=== PATIENT | male | born 1955 | race Caucasian/White ===

== ENCOUNTER 2016-09-27 00:01 | Observation (INO) | payer OTHER ==
[~2016-09-27] VITALS: Ht 177.8 cm; Wt 102.3 kg
[2016-09-27] VITALS (9 sets, daily range): BP systolic 127–177; BP diastolic 67–80; PULSE 60–76; TEMP 36.5–36.6; O2SAT 91–95; Ht 177.8 cm; Wt 102.3 kg
[2016-09-27] MEDS ORDERED: ALBUT/IPRATROP 3MG/0.5MG NEB 3 ML VIAL INH STA (00:15)
[2016-09-27] MEDS ORDERED: METHYLPREDNISOLONE 125 MG VIAL IV STA (00:15)
[2016-09-27 00:29] LABS: BASO % 0.5 %; BASO ABS # 0.04 K/uL (0-0.2); COMPLETE YES; EOS % 5.2 %; HEMATOCRIT 41.7 % (42-52); IG% 0.3 %; LYMPH % 36.6 %; LYMPH ABS # 2.68 K/uL (1.2-3.4); MEAN CELL VOLUME 84.2 fL (80-100); MEAN CORPUSCULAR HEMOGLOBIN 28.7 pg (25-34); MEAN CORPUSCULAR HGB CONC 34.1 g/dl (32-36); MEAN PLATELET VOLUME 9.5 fL (7.4-10.4); MONO % 12.7 %; NEUT % 44.7 %; PLATELET COUNT 269 K/uL (130-400); RED BLOOD COUNT 4.95 M/uL (4.7-6.1); WHITE BLOOD COUNT 7.33 K/uL (4.8-10.8)
[2016-09-27] MEDS ORDERED: MELO7.5T5 PO (00:31)
[2016-09-27] MEDS ORDERED: SIMV40TA2 PO (00:32)
[2016-09-27] MEDS ORDERED: KETO2SHA TOP (00:33)
[2016-09-27] MEDS ORDERED: ALBU18002 INH (00:34)
[2016-09-27 01:03] LABS: ALT/SGPT 40 U/L (12-78); AST/SGOT 21 U/L (15-37); BLOOD UREA NITROGEN 21 mg/dl (7-18); BUN/CREATININE RATIO 19.5 (10-20); CALCIUM 8.8 mg/dl (8.5-10.1); CARBON DIOXIDE 27 mmol/L (21-32); CHLORIDE 109 mmol/L (98-107); GLUCOSE 95 mg/dl (70-99); MAGNESIUM 2.3 mg/dl (1.8-2.4); POTASSIUM 3.8 mmol/L (3.5-5.1); SODIUM 146 mmol/L (136-145)
[2016-09-27 01:12] LABS: ALKALINE PHOSPHATASE 73 U/L (45-117); CKMB/CK RATIO 0.8 (0-3.0)
--- NOTE | 2016-09-27 02:06 | EMERGENCY ROOM VISIT NOTE ---
History First contact with patient: 00:04 Chief Complaint: CHEST PAIN Stated Complaint: CHEST PAIN,PAIN DOWN LFT ARM Nursing Triage Summary: pt states he had onset of chest pain this evening after eating lunch on break at work. denies anything making pain worse or better. denies cardiac history. family hx of heart attacks. pt reports he smoked "a long time ago." recently sick with cough/cold. denies dizziness/nausea. states he has no pain at this time but does feel sob. pt alert and oriented x4 History of Present Illness The patient is a 61 year old male who presents to the Emergency Room with complaints of midsternal chest pain that radiates down his left arm described as aching, ranging in severity was 4-10 that is pretty much resolved. Patient also felt shaky and sweaty once it was occurred. He just got done eating a sandwich and chips. Nothing makes the pain better or worse. No prior heart disease that he knows of. He does have a family history of heart disease in his father. He used to smoke. He does not smoke anymore. He denies blood pressure or diabetes. No recent travel. No leg pain or swelling. Patient denies abdominal pain, vomiting, diarrhea, leg pain or swelling, back pain, jaw pain, neck pain. No recent stress test or echocardiogram. Patient states he's been having a cough for the past 2 weeks. Review of Systems See HPI for pertinent positives & negatives. A total of 10 systems reviewed and were otherwise negative. Past Medical/Surgical History Medical Problems: (1) Chest pain Hyperlipidemia, appendectomy Social History Smoking Status: Former Smoker Smokeless Tobacco Use: No Alcohol Use: occasionally Drug Use: none Marital Status: Housing Status: lives with family Occupation Status: employed Current/Historical Medications Scheduled Ketoconazole (Topical) (Ketoconazole), 1 APPLN TOP DIRECTED Simvastatin (Zocor), 40 MG PO QPM Scheduled PRN Albuterol Sulfate (Proair Respiclick), 2 PUFFS INH Q4 PRN for SOB/Wheezing Meloxicam (Mobic), 15 MG PO DIRECTED PRN for Pain Allergies Coded Allergies: No Known Allergies (Unverified , 09/27/16) Physical Exam Vital Signs Date Time Temp Pulse Resp B/P Pulse Ox O2 Delivery O2 Flow Rate FiO2 09/27/16 01:30 59 18 145/81 92 Room Air 09/27/16 01:09 65 18 161/80 92 Room Air 09/27/16 00:30 60 18 141/86 98 Room Air 09/27/16 00:30 95 Room Air 09/27/16 00:30 95 Room Air 09/27/16 00:17 63 09/27/16 00:17 Room Air 09/27/16 00:02 36.6 61 16 220/75 93 Room Air Physical Exam VITALS: Vitals are noted on the nurse's note and reviewed by myself. Vital signs hypertensive GENERAL: Pleasant male, in no acute distress, nondiaphoretic, well-developed well-nourished. SKIN: The skin was without rashes, erythema, edema, or bruising. There is no tenting of the skin. Capillary reflex less than 2 seconds. HEAD: Normocephalic atraumatic. EARS: External auditory canals clear, tympanic membranes pearly phipps without erythema or effusion bilaterally. EYES: Pupils equal round and reactive to light and accommodation. Conjunctivae without injection, sclerae without icterus. Extraocular movements intact. NOSE: Patent, turbinates without inflammation or discharge. MOUTH: Mucous membranes moist. Pharynx without erythema or exudate. Uvula midline. Airway patent. Tongue does not deviate. NECK: Supple without nuchal rigidity. No lymphadenopathy. No thyromegaly. Cervical spine is nontender. No JVD. HEART: Regular rate and rhythm without murmurs gallops or rubs. LUNGS: Mild diffuse end expiratory wheezes, without rales or rhonchi. No dullness to percussion. No retractions or accessory muscle use. ABDOMEN: Positive bowel sounds x 4. Normal tympanic percussion. Soft, nontender, without masses or organomegaly. [place] sign negative. No guarding or rebound tenderness. MUSCULOSKELETAL: No muscle atrophy, erythema, or edema noted. NEURO: Patient was alert and oriented to person place and time. Normal sensation to light and sharp touch. No focal neurological deficits. Medical Decision & Procedures Laboratory Results 09/27/16 00:14 Red Blood Count 4.95, Mean Corpuscular Volume 84.2, Mean Corpuscular Hemoglobin 28.7, Mean Corpuscular Hemoglobin Concent 34.1, Mean Platelet Volume 9.5, Neutrophils (%) (Auto) 44.7, Lymphocytes (%) (Auto) 36.6, Monocytes (%) (Auto) 12.7, Eosinophils (%) (Auto) 5.2, Basophils (%) (Auto) 0.5, Neutrophils # (Auto ) 3.28, Lymphocytes # (Auto) 2.68, Monocytes # (Auto) 0.93, Eosinophils # (Auto ) 0.38, Basophils # (Auto) 0.04 09/27/16 00:14 Test 09/27/16 00:14 09/27/16 00:24 White Blood Count 7.33 K/uL (4.8-10.8) Red Blood Count 4.95 M/uL (4.7-6.1) Hemoglobin 14.2 g/dL (14.0-18.0) Hematocrit 41.7 % (42-52) Mean Corpuscular Volume 84.2 fL (80-100) Mean Corpuscular Hemoglobin 28.7 pg (25-34) Mean Corpuscular Hemoglobin Concent 34.1 g/dl (32-36) Platelet Count 269 K/uL (130-400) Mean Platelet Volume 9.5 fL (7.4-10.4) Neutrophils (%) (Auto) 44.7 % Lymphocytes (%) (Auto) 36.6 % Monocytes (%) (Auto) 12.7 % Eosinophils (%) (Auto) 5.2 % Basophils (%) (Auto) 0.5 % Neutrophils # (Auto) 3.28 K/uL (1.4-6.5) Lymphocytes # (Auto) 2.68 K/uL (1.2-3.4) Monocytes # (Auto) 0.93 K/uL (0.11-0.59) Eosinophils # (Auto) 0.38 K/uL (0-0.5) Basophils # (Auto) 0.04 K/uL (0-0.2) RDW Standard Deviation 42.6 fL (36.4-46.3) RDW Coefficient of Variation 13.9 % (11.5-14.5) Immature Granulocyte % (Auto) 0.3 % Immature Granulocyte # (Auto) 0.02 K/uL (0.00-0.02) Anion Gap 10.0 mmol/L (3-11) Est Creatinine Clear Calc Drug Dose 86.3 ml/min Estimated GFR () 84.1 Estimated GFR (Non- 72.6 BUN/Creatinine Ratio 19.5 (10-20) Calcium Level 8.8 mg/dl (8.5-10.1) Magnesium Level 2.3 mg/dl (1.8-2.4) Total Bilirubin 0.2 mg/dl (0.2-1) Direct Bilirubin < 0.1 mg/dl (0-0.2) Aspartate Amino Transf (AST/SGOT) 21 U/L (15-37) Alanine Aminotransferase (ALT/SGPT) 40 U/L (12-78) Alkaline Phosphatase 73 U/L (45-117) Total Creatine Kinase 273 U/L (39-308) Creatine Kinase MB 2.3 ng/ml (0.5-3.6) Creatine Kinase MB Ratio 0.8 (0-3.0) Troponin I < 0.015 ng/ml (0-0.045) Total Protein 7.5 gm/dl (6.4-8.2) Albumin 3.7 gm/dl (3.4-5.0) Lipase 156 U/L (73-393) Thyroid Stimulating Hormone (TSH) 1.420 uIu/ml (0.300-4.500) Bedside D-Dimer 278 ng/mlFEU (0-450) Medications Administered Medications (Trade) Dose Ordered Sig/Anali Route Start Time Stop Time Status Last Admin Dose Admin Albuterol/ Ipratropium (Duoneb) 3 ml NOW STAT INH 09/27/16 00:15 09/27/16 00:16 DC 09/27/16 00:25 3 ML Methylprednisolone Sodium Succinate (Solu-Medrol IV) 125 mg NOW STAT IV 09/27/16 00:15 09/27/16 00:16 DC 09/27/16 00:25 125 MG ED Course Prior records/ancillary studies reviewed. Triage Nursing notes reviewed. Additional history obtained from family. The patient's history was concerning for chest pain. Differential diagnosis: Etiologies such as cardiac ischemia, aortic dissection, pulmonary embolism, pneumonia, pneumothorax, musculoskeletal, infections, pericarditis, myocarditis , esophageal rupture, gastrointestinal, as well as others were entertained. Physical examination: As above. ER treatment provided: Nebulizer, Solu-Medrol On reassessment the patient felt better. Diagnostic interpretation by me: The electrocardiogram was negative for pathologic change. Normal sinus, normal intervals, no acute ST-T changes, Q waves in lead 3, rate of 56. Impression sinus bradycardia with Q waves in the inferior lead interpreted by myself The labs revealed negative troponin. Negative d-dimer Imaging studies: Chest x-ray with no acute consolidation or pneumothorax or free air per my interpretation Consultation: A consultation was placed with the hospitalist, Dr Foster. The case was discussed and diagnostics were reviewed. The patient was evaluated in the ER for further treatment. Exam and history seem consistent with chest pain that could be cardiac in etiology. Patient will be evaluated by medicine for possible admission. Negative troponin. He has risk factors of diabetes and family history of heart disease. No recent stress test or echocardiogram. By the evaluation outlined above emergent etiologies such as aortic dissection , pulmonary embolism, pneumonia, pneumothorax, pericarditis, myocarditis, gastrointestinal, as well as others were deemed relatively unlikely. The pt informed about the findings as listed above. All questions were answered and pleased with the treatment. case reviewed with my Attending Medical Decision As above Impression Primary Impression: Precordial chest pain Additional Impression: Acute bronchitis Departure Information Dispostion Being Evaluated By Hospitalist Condition FAIR Referrals Farhat Diaz M.D. (PCP) Patient Instructions [facility] Problem Qualifiers Additional Impression: Acute bronchitis Bronchitis organism: unspecified organism Qualified Codes: J20.9 - Acute bronchitis, unspecified
[2016-09-27] MEDS ORDERED: ALBUT/IPRATROP 3MG/0.5MG NEB 3 ML VIAL INH PRN (02:15)
[2016-09-27] MEDS ORDERED: ACETAMINOPHEN 325 MG TAB PO PRN (02:15)
[2016-09-27] MEDS ORDERED: TRAMADOL HCL 50 MG TAB PO PRN (02:15)
[2016-09-27] MEDS ORDERED: ONDANSETRON INJ 2 MG/ML 2 ML VIAL IV PRN (02:15)
[2016-09-27] MEDS ORDERED: MoRPHine SULFATE 4 MG/ML 1 ML CARP\\VIAL IV PRN (02:15)
[2016-09-27] MEDS ORDERED: LORAZEPAM 2 MG/ML 1 ML VIAL IV PRN (02:15)
[2016-09-27] MEDS ORDERED: NITROGLYCERIN 0.4 MG SL PER TAB CHARGE SL PRN (02:15)
[2016-09-27] MEDS ORDERED: IV FLUIDS COMPLETED PRN (02:45)
[2016-09-27] MEDS ORDERED: ASPIRIN 325 MG ECTAB PO STA (02:46)
[2016-09-27] MEDS ORDERED: DOXYCYCLINE HYCLATE 100 MG CAP PO STA (02:46)
[2016-09-27] MEDS ORDERED: SODIUM CHLOR 0.45% + 20MEQ KCL 1,000 ML IV ONE (03:30)
[2016-09-27 03:57] LABS: PROTHROMBIN TIME (PATIENT) 10.7 SECONDS (9.0-12.0)
--- NOTE | 2016-09-27 05:32 | HISTORY & PHYSICAL EXAMINATION ---
DATE OF ADMISSION: 09/27/2016 PCP : Dr. Diaz CHIEF COMPLAINT: Chest pain. Hx obtained from px and records. HISTORY OF PRESENT ILLNESS: Medical history significant for hyperlipidemia, past tobacco abuse. Hx Lyme disease sp treatment. Patient has had cough/nasal congestion symptoms. Cough later productive of yellow sputum. Sick contacts. Some improvent w/ [id number] medications, inhaler. He was at work today when he noted substernal discomfort going to the left arm, tingly, nonpleuritic, some shortness of breath, no diaphoreses; had some neck pain as well. Patient admits to some stress at work, more than usual. Brought by to the Emergency Room. SBP 220s. Patient received Solu-Medrol, nebs for bronchitis. Patient currently feeling better. MEDICAL HISTORY: As above. SURGERIES: Appendectomy. HOME MEDICATIONS: ProAir, ketoconazole, Mobic, Zocor. ALLERGIES: No known drug allergies. FAMILY HISTORY: Family history of heart disease. PERSONAL AND SOCIAL HISTORY: past tobacco abuse, no chronic intake of alcoholic beverages. [employer] employee REVIEW OF SYSTEMS: As per HPI, all other ROS negative. PHYSICAL EXAMINATION: VITAL SIGNS: Blood pressure was noted to be 220/75, later 140/80, pulse 61, respiratory rate 16, temperature 36.6, sats 98 on room air. GENERAL: Slightly anxious, obese, no respiratory distress. SKIN: Normal color. HEENT: Alopecia. [place] palpebral conjuctivae. Dry mucosa. NECK: Short neck. Expiratory wheezes at the bases. HEART: Regular rate and rhythm, no murmur. ABDOMEN: Some distension, nontender. EXTREMITIES: No edema. No tenderness. NEUROLOGIC: No gross focality. LABS: Hemoglobin 14, hematocrit 40, white cells 7.5, platelets 267. Sodium 140, potassium 3.8, chloride 109, CO2 27, creatinine 1, glucose 100. trop 0, ddimer N Chest x-ray, atelectasis. EKG, sinus bradycardia, no ischemia. ASSESSMENT: 1. Chest pain possibly from hypertensive urgency ? chronic hypertension. multifactorial : complicated bronchitis. No sepsis work stress. 2. Past tobacco abuse. 3. Hyperlipidemia on statin therapy. PLAN: Observation PCU monitor BP TTE re cp, elevated BP may need maintenance rx if signs of long-standing HTN noted on TTE Aspirin for CAD prevention until ACS is ruled out. Doxycycline for bronchitis. Nebs, RTC, prn anxiolytic prn DVT prophylaxis, heparin subQ. Full code. MTDD
[2016-09-27 06:15] LABS: BLOOD UREA NITROGEN 19 mg/dl (7-18); BUN/CREATININE RATIO 19.3 (10-20); CALCIUM 8.9 mg/dl (8.5-10.1); CARBON DIOXIDE 26 mmol/L (21-32); CHLORIDE 107 mmol/L (98-107); GLUCOSE 143 mg/dl (70-99); POTASSIUM 4.1 mmol/L (3.5-5.1); SODIUM 142 mmol/L (136-145)
[2016-09-27 06:20] LABS: CHOLESTEROL 213 mg/dl (0-200); CHOLESTEROL/HDL RATIO 5.1; HDL CHOLESTEROL 42 mg/dl; LDL CHOLESTEROL CALCULATED 154 mg/dl; TRIGLYCERIDES 87 mg/dl (0-150); VERY LOW DENSITY LIPOPROT CALC 17 mg/dl
--- NOTE | 2016-09-27 07:05 | DIAGNOSTIC IMAGING REPORT ---
CHEST ONE VIEW PORTABLE CLINICAL HISTORY: Chest pain. Cough. COMPARISON STUDY: No previous studies for comparison. FINDINGS: Lung volumes are normal. There is no pneumothorax or pleural effusion. There is no consolidation to suggest pneumonia. Cardiac size is normal. Mediastinal contours are normal. There is no evidence of pulmonary edema. IMPRESSION: No acute cardiopulmonary findings. Electronically signed by: Kendall Presley M.D. 09/27/2016 7:04 AM Dictated Date/Time: 09/27/2016 7:01 AM
[2016-09-27] MEDS: ALBUT/IPRATROP 3MG/0.5MG NEB 3 ML VIAL INH SCH ×3 (07:23→15:20)
[2016-09-27] MEDS ORDERED: INFLUENZA ADMINISTRATION CHARGE ONE (08:00)
[2016-09-27] MEDS ORDERED: INFLUENZA VIRUS QUAD VACCINE 0.5 ML SYR IM. ONE (08:00)
[2016-09-27] MEDS ORDERED: HydrALAZINE HCL 20 MG/ML VIAL IV. PRN (08:30)
[2016-09-27] MEDS ORDERED: ENOXAPARIN 40 MG/0.4 ML SYR SC SCH (09:00)
[2016-09-27] MEDS ORDERED: AMLODIPINE BESYLATE 5 MG TAB PO SCH (09:00)
--- NOTE | 2016-09-27 13:09 | Progress Note ---
Medicine Progress Note Date & Time of Visit: Sep 27, 2016 at 12:47. Subjective Pt was seen and examined Lying in bed comfortable with no distress watching TV Pt said that he feels fine He denies any chest pain, palpitation, dizziness and SOB Pt said that he is back to his baseline and ready to get discharge Objective Last 8 Hrs Date Time Temp Pulse Resp B/P Pulse Ox O2 Delivery O2 Flow Rate FiO2 09/27/16 12:40 36.6 69 18 127/70 92 Room Air 09/27/16 12:00 Room Air 09/27/16 11:27 66 16 95 Room Air 09/27/16 08:00 Room Air 09/27/16 07:54 36.5 61 19 177/76 91 Room Air 09/27/16 07:18 64 16 93 Room Air Physical Exam: General- very pleasant, no distress Head- atraumatic Eyes- PERRL, EOMI ENT- oropharynx clear Neck- supple, no JVD Lungs- clear to auscultation and percussion Heart- regular rhythm; no murmur Abdomen- normal bowel sounds, soft, nontender Extremities- no pretibial edema, no calf tenderness Neuro- alert, oriented x 3; PERRL, EOMI Skin- warm & dry Laboratory Results: Last 24 Hours Test 09/27/16 00:14 09/27/16 00:24 09/27/16 05:00 White Blood Count 7.33 K/uL Red Blood Count 4.95 M/uL Hemoglobin 14.2 g/dL Hematocrit 41.7 % Mean Corpuscular Volume 84.2 fL Mean Corpuscular Hemoglobin 28.7 pg Mean Corpuscular Hemoglobin Concent 34.1 g/dl Platelet Count 269 K/uL Mean Platelet Volume 9.5 fL Neutrophils (%) (Auto) 44.7 % Lymphocytes (%) (Auto) 36.6 % Monocytes (%) (Auto) 12.7 % Eosinophils (%) (Auto) 5.2 % Basophils (%) (Auto) 0.5 % Neutrophils # (Auto) 3.28 K/uL Lymphocytes # (Auto) 2.68 K/uL Monocytes # (Auto) 0.93 K/uL Eosinophils # (Auto) 0.38 K/uL Basophils # (Auto) 0.04 K/uL RDW Standard Deviation 42.6 fL RDW Coefficient of Variation 13.9 % Immature Granulocyte % (Auto) 0.3 % Immature Granulocyte # (Auto) 0.02 K/uL Prothrombin Time 10.7 SECONDS Prothromb Time International Ratio 1.0 Sodium Level 146 mmol/L 142 mmol/L Potassium Level 3.8 mmol/L 4.1 mmol/L Chloride Level 109 mmol/L 107 mmol/L Carbon Dioxide Level 27 mmol/L 26 mmol/L Anion Gap 10.0 mmol/L 9.0 mmol/L Blood Urea Nitrogen 21 mg/dl 19 mg/dl Creatinine 1.10 mg/dl 1.00 mg/dl Est Creatinine Clear Calc Drug Dose 86.3 ml/min 94.1 ml/min Estimated GFR () 84.1 94.4 Estimated GFR (Non- 72.6 81.4 BUN/Creatinine Ratio 19.5 19.3 Random Glucose 95 mg/dl 143 mg/dl Calcium Level 8.8 mg/dl 8.9 mg/dl Magnesium Level 2.3 mg/dl Total Bilirubin 0.2 mg/dl Direct Bilirubin < 0.1 mg/dl Aspartate Amino Transf (AST/SGOT) 21 U/L Alanine Aminotransferase (ALT/SGPT) 40 U/L Alkaline Phosphatase 73 U/L Total Creatine Kinase 273 U/L Creatine Kinase MB 2.3 ng/ml Creatine Kinase MB Ratio 0.8 Troponin I < 0.015 ng/ml < 0.015 ng/ml Total Protein 7.5 gm/dl Albumin 3.7 gm/dl Lipase 156 U/L Thyroid Stimulating Hormone (TSH) 1.420 uIu/ml Bedside D-Dimer 278 ng/mlFEU Triglycerides Level 87 mg/dl Cholesterol Level 213 mg/dl HDL Cholesterol 42 mg/dl LDL Cholesterol, Calculated 154 mg/dl VLDL Cholesterol, Calculated 17 mg/dl Cholesterol/HDL Ratio 5.1 Diagnostic Imaging: Echo Interpretation Summary * Name: PRINCE HOROWITZ Study Date: 09/27/2016 06:40 AM BP: 143/8 mmHg * Patient Location: 2T\S\S238\S\2 HR: 65 * : 1955 (M/d/yyyy) Gender: Male Height: 70 in * Age: 61 yrs Ethnicity: [place] Weight: 229 lb * Ordering Physician: Mumtaz Foster * Referring Physician: Self, Referred * Performed By: Murtaza Parks RCS * * Reason For Study: Chest Pain * BSA: 2.2 m2 * -- Conclusions -- * Ejection Fraction = 65-70%. * Aortic valve sclerosis mild, without significant aortic valvular stenosis. * There is mild mitral regurgitation. Procedure Details * A complete two-dimensional transthoracic echocardiogram was performed (2D, M-mode, Doppler and color flow Doppler). Left Ventricle * The left ventricle is normal in size. * There is normal left ventricular wall thickness. * Left ventricular systolic function is normal. * Ejection Fraction = 65-70%. * The left ventricular wall motion is normal. Right Ventricle * The right ventricle is normal size. * The right ventricular systolic function is normal as assessed by tricuspid annular plane systolic excursion (TAPSE) (normal >1.5 cm). Atria * The left atrial size is normal. * Right atrial size is normal. * There is no evidence of atrial septal defect, but resolution does not allow assessment for a patent foramen ovale. Mitral Valve * The mitral valve is normal. * There is no mitral valve stenosis. * There is mild mitral regurgitation. Tricuspid Valve * The tricuspid valve is normal. * There is no tricuspid stenosis. * Significant tricuspid regurgitation is absent. Aortic Valve * Aortic valve sclerosis mild, without significant aortic valvular stenosis. * The aortic valve is trileaflet. * Aortic stenosis is absent. * There is no significant aortic regurgitation. Pulmonic Valve * The pulmonary valve is not well seen, but the Doppler examination is normal without significant regurgitation or stenosis. Great Vessels * The aortic root and proximal ascending aorta are normal sized. Pericardium/Pleural * There is no pericardial effusion. Great Vessels * Normal inferior vena cava diameter and respiratory variation suggests normal central venous pressure. Left Ventricular Diastolic Function * Pulse wave TDI of the anterior and posterior mitral annulas demonstrates normal LV relaxation MMode 2D Measurements and Calculations IVSd 1.2 cm IVSs 1.5 cm LVIDd 5.3 cm LVIDs 3.4 cm LVPWd 1.2 cm LVPWs 1.4 cm IVS/LVPW 0.96 FS 36.0 % EDV(Teich) 134.7 ml ESV(Teich) 47.0 ml EF(Teich) 65.1 % EDV(cubed) 148.0 ml ESV(cubed) 38.8 ml EF(cubed) 73.8 % % IVS thick 25.2 % % LVPW thick 15.2 % LV mass(C)d 257.8 grams LV mass(C)dI 116.6 grams/m\S\2 LV mass(C)s 174.9 grams LV mass(C)sI 79.1 grams/m\S\2 CO(Teich) 4.7 l/min CI(Teich) 2.1 l/min/m\S\2 SV(Teich) 87.8 ml SI(Teich) 39.7 ml/m\S\2 CO(cubed) 5.9 l/min CI(cubed) 2.7 l/min/m\S\2 SV(cubed) 109.2 ml SI(cubed) 49.4 ml/m\S\2 Ao root diam 3.5 cm Ao root area 9.4 cm\S\2 ACS 1.6 cm LA dimension 3.8 cm LA/Ao 1.1 LVAd ap4 43.7 cm\S\2 LVLd ap4 9.4 cm EDV(MOD-sp4) 172.0 ml LVAs ap4 21.0 cm\S\2 LVLs ap4 6.7 cm ESV(MOD-sp4) 59.0 ml EF(MOD-sp4) 65.7 % LVAd ap2 29.2 cm\S\2 LVLd ap2 7.7 cm EDV(MOD-sp2) 94.0 ml LVAs ap2 15.1 cm\S\2 LVLs ap2 6.2 cm ESV(MOD-sp2) 32.0 ml EF(MOD-sp2) 66.0 % CO(MOD-sp4) 6.1 l/min CI(MOD-sp4) 2.8 l/min/m\S\2 SV(MOD-sp4) 113.0 ml SI(MOD-sp4) 51.1 ml/m\S\2 CO(MOD-sp2) 3.3 l/min CI(MOD-sp2) 1.5 l/min/m\S\2 SV(MOD-sp2) 62.0 ml SI(MOD-sp2) 28.0 ml/m\S\2 Doppler Measurements and Calculations MV E max ismael 84.9 cm/sec MV A max ismael 72.6 cm/sec MV E/A 1.2 MV P1/2t max ismael 102.8 cm/sec MV P1/2t 79.5 msec MVA(P1/2t) 2.8 cm\S\2 MV dec slope 378.7 cm/sec\S\2 MV dec time 0.24 sec Ao V2 max 158.0 cm/sec Ao max PG 10.0 mmHg Ao max PG (full) 2.8 mmHg LV V1 max PG 7.2 mmHg LV V1 max 133.9 cm/sec PA V2 max 139.1 cm/sec PA max PG 7.8 mmHg TR max ismael 226.9 cm/sec Assessment & Plan Chest pain possibly secondary with hypertensive urgency Need to r/o acs Asymptomatic at this time Repeat EKG this morning shown No ST depression Troponin negative Continue asa and statin Echo done normal left ventricular wall thickness. Left ventricular systolic function is normal. Ejection Fraction = 65-70% and left ventricular wall motion is normal. Hypertensive Urgency Pt said that he is having a lot of stress that is work related BP was elevated this morning Norvasc 5 mg was started Advised pt to follow a low salt diet Continue monitor BP Hyperlipidemia Total chol 213, LDL 154, HDL 42 Continue simvastatin Please follow a low cholesterol diet Cough Possible related to bronchitis Was started on doxy 100mg BID no wbc, symptoms improved mostly viral will d/c antibiotic for now Stable DVT Px on lovenox supq CODE STATUS FULL CODE DISPOSITION Follow up with your primary care physician Dr. Diaz on Oct 01 @2:10 pm Current Inpatient Medications: Current Inpatient Medications Medications (Trade) Dose Ordered Sig/Anali Route Start Time Stop Time Status Last Admin Dose Admin Doxycycline Hyclate (Vibramycin Cap) 100 mg BID PO 09/27/16 21:00 10/04/16 20:59 Aspirin (Ecotrin Tab) 325 mg QAM PO 09/28/16 09:00 10/28/16 08:59 Albuterol/ Ipratropium (Duoneb) 3 ml QIDR INH 09/27/16 08:00 10/27/16 07:59 09/27/16 11:28 3 ML Albuterol/ Ipratropium (Duoneb) 3 ml Q2H PRN INH 09/27/16 02:15 10/27/16 02:14 Morphine Sulfate (MoRPHine SULFATE INJ) 4 mg Q3H PRN IV 09/27/16 02:15 10/11/16 02:14 Tramadol HCl (Ultram Tab) 25 mg Q6H PRN PO 09/27/16 02:15 10/27/16 02:14 Ondansetron HCl (Zofran Inj) 4 mg Q6H PRN IV 09/27/16 02:15 10/27/16 02:14 Lorazepam (Ativan Inj) 0.5 mg Q4H PRN IV 09/27/16 02:15 10/27/16 02:14 Simvastatin (Zocor Tab) 40 mg QPM PO 09/27/16 21:00 10/27/16 20:59 Enoxaparin Sodium (Lovenox Inj) 40 mg Q24H SC 09/27/16 09:00 10/27/16 08:59 09/27/16 09:18 40 MG Acetaminophen (Tylenol Tab) 650 mg Q4H PRN PO 09/27/16 02:15 10/27/16 02:14 Nitroglycerin 0.4 mg 0.4 mg UD PRN SL 09/27/16 02:15 10/27/16 02:14 Potassium Chloride/Sodium Chloride (09/06 Nss + 20meq KCl 1000ml) 1,000 ml @ 75 mls/hr [id number] ONCE IV 09/27/16 03:30 09/27/16 16:49 09/27/16 03:57 75 MLS/HR Miscellaneous (Iv Fluids Completed) 1 ea PRN PRN N/A 09/27/16 02:45 09/27/17 02:44 Amlodipine Besylate (Norvasc Tab) 5 mg QAM PO 09/27/16 09:00 10/27/16 08:59 09/27/16 09:18 5 MG Hydralazine HCl (HydrALAZINE INJ) 10 mg Q6 PRN IV. 09/27/16 08:30 10/27/16 08:29
--- NOTE | 2016-09-27 16:21 | ECHOCARDIOGRAM REPORT ---
*NOTICE TO RECEIVING [employer] This information is strictly Confidential and protected under [place] law. [place] law prohibits you from making any further disclosure of this information unless further disclosure is expressly permitted by the written consent of the person to whom it pertains or is authorized by law. A general authorization for the release of medical or other information is not sufficient for this purpose. Hospital accepts no responsibility if the information is made available to any other person, INCLUDING THE PATIENT. Interpretation Summary * Name: PRINCE HOROWITZ Study Date: 09/27/2016 06:40 AM BP: 143/8 mmHg * Patient Location: C.2T\S\S238\S\2 HR: 65 * : 1955 (M/d/yyyy) Gender: Male Height: 70 in * Age: 61 yrs Ethnicity: [place] Weight: 229 lb * Ordering Physician: Mumtaz Foster * Referring Physician: Self, Referred * Performed By: Murtaza Parks RCS * * Reason For Study: Chest Pain * BSA: 2.2 m2 * -- Conclusions -- * Ejection Fraction = 65-70%. * Aortic valve sclerosis mild, without significant aortic valvular stenosis. * There is mild mitral regurgitation. Procedure Details * A complete two-dimensional transthoracic echocardiogram was performed (2D, M-mode, Doppler and color flow Doppler). Left Ventricle * The left ventricle is normal in size. * There is normal left ventricular wall thickness. * Left ventricular systolic function is normal. * Ejection Fraction = 65-70%. * The left ventricular wall motion is normal. Right Ventricle * The right ventricle is normal size. * The right ventricular systolic function is normal as assessed by tricuspid annular plane systolic excursion (TAPSE) (normal >1.5 cm). Atria * The left atrial size is normal. * Right atrial size is normal. * There is no evidence of atrial septal defect, but resolution does not allow assessment for a patent foramen ovale. Mitral Valve * The mitral valve is normal. * There is no mitral valve stenosis. * There is mild mitral regurgitation. Tricuspid Valve * The tricuspid valve is normal. * There is no tricuspid stenosis. * Significant tricuspid regurgitation is absent. Aortic Valve * Aortic valve sclerosis mild, without significant aortic valvular stenosis. * The aortic valve is trileaflet. * Aortic stenosis is absent. * There is no significant aortic regurgitation. Pulmonic Valve * The pulmonary valve is not well seen, but the Doppler examination is normal without significant regurgitation or stenosis. Great Vessels * The aortic root and proximal ascending aorta are normal sized. Pericardium/Pleural * There is no pericardial effusion. Great Vessels * Normal inferior vena cava diameter and respiratory variation suggests normal central venous pressure. Left Ventricular Diastolic Function * Pulse wave TDI of the anterior and posterior mitral annulas demonstrates normal LV relaxation MMode 2D Measurements and Calculations IVSd 1.2 cm IVSs 1.5 cm LVIDd 5.3 cm LVIDs 3.4 cm LVPWd 1.2 cm LVPWs 1.4 cm IVS/LVPW 0.96 FS 36.0 % EDV(Teich) 134.7 ml ESV(Teich) 47.0 ml EF(Teich) 65.1 % EDV(cubed) 148.0 ml ESV(cubed) 38.8 ml EF(cubed) 73.8 % % IVS thick 25.2 % % LVPW thick 15.2 % LV mass(C)d 257.8 grams LV mass(C)dI 116.6 grams/m\S\2 LV mass(C)s 174.9 grams LV mass(C)sI 79.1 grams/m\S\2 CO(Teich) 4.7 l/min CI(Teich) 2.1 l/min/m\S\2 SV(Teich) 87.8 ml SI(Teich) 39.7 ml/m\S\2 CO(cubed) 5.9 l/min CI(cubed) 2.7 l/min/m\S\2 SV(cubed) 109.2 ml SI(cubed) 49.4 ml/m\S\2 Ao root diam 3.5 cm Ao root area 9.4 cm\S\2 ACS 1.6 cm LA dimension 3.8 cm LA/Ao 1.1 LVAd ap4 43.7 cm\S\2 LVLd ap4 9.4 cm EDV(MOD-sp4) 172.0 ml LVAs ap4 21.0 cm\S\2 LVLs ap4 6.7 cm ESV(MOD-sp4) 59.0 ml EF(MOD-sp4) 65.7 % LVAd ap2 29.2 cm\S\2 LVLd ap2 7.7 cm EDV(MOD-sp2) 94.0 ml LVAs ap2 15.1 cm\S\2 LVLs ap2 6.2 cm ESV(MOD-sp2) 32.0 ml EF(MOD-sp2) 66.0 % CO(MOD-sp4) 6.1 l/min CI(MOD-sp4) 2.8 l/min/m\S\2 SV(MOD-sp4) 113.0 ml SI(MOD-sp4) 51.1 ml/m\S\2 CO(MOD-sp2) 3.3 l/min CI(MOD-sp2) 1.5 l/min/m\S\2 SV(MOD-sp2) 62.0 ml SI(MOD-sp2) 28.0 ml/m\S\2 Doppler Measurements and Calculations MV E max ismael 84.9 cm/sec MV A max ismael 72.6 cm/sec MV E/A 1.2 MV P1/2t max ismael 102.8 cm/sec MV P1/2t 79.5 msec MVA(P1/2t) 2.8 cm\S\2 MV dec slope 378.7 cm/sec\S\2 MV dec time 0.24 sec Ao V2 max 158.0 cm/sec Ao max PG 10.0 mmHg Ao max PG (full) 2.8 mmHg LV V1 max PG 7.2 mmHg LV V1 max 133.9 cm/sec PA V2 max 139.1 cm/sec PA max PG 7.8 mmHg TR max ismael 226.9 cm/sec
[2016-09-27] MEDS ORDERED: NRV5 PO (17:24)
--- NOTE | 2016-09-27 17:27 | Discharge Instructions ---
Discharge Instructions Admission Reason for Admission: Chest Pain Discharge Discharge Diagnosis / Problem: Chest discomfort, Hypertensive Urgency, Dyslipidemia Discharge Goals Goal(s): Decrease discomfort, Improve function, Improve disease control Activity Recommendations Activity Limitations: resume your previous activity . Instructions / Follow-Up Instructions / Follow-Up Follow up with your primary care physician Dr. Diaz on Oct 01 @2:10 pm Current Hospital Diet Patient's current hospital diet: AHA Diet (Heart Healthy) Discharge Diet Recommended Diet: AHA Diet (Heart Healthy) Pending Studies Studies pending at discharge: no Laboratory Results Lipid Panel Test 09/27/16 05:00 Range/Units Triglycerides Level 87 0-150 mg/dl Cholesterol Level 213 H 0-200 mg/dl HDL Cholesterol 42 mg/dl Cholesterol/HDL Ratio 5.1 LDL Cholesterol, Calculated 154 mg/dl Medical Emergencies . Who to Call and When: Medical Emergencies: If at any time you feel your situation is an emergency, please call 911 immediately. . Non-Emergent Contact Non-Emergency issues call your: Primary Care Provider Call Non-Emergent contact if: you have any medication questions . . "Provider Documentation" section prepared by Sheba Reyes. VTE Core Measure Inpt VTE Proph given/why not?: Enoxaparin (Lovenox)SQ
[2016-09-27] MEDS ORDERED: SIMVASTATIN 40 MG TAB PO SCH (21:00)
[2016-09-27] MEDS ORDERED: DOXYCYCLINE HYCLATE 100 MG CAP PO SCH (21:00)
[2016-09-28] MEDS ORDERED: ASPIRIN 325 MG ECTAB PO SCH (09:00)
--- NOTE | 2016-10-01 13:44 | Discharge Summary ---
Discharge Summary Admission Date: Sep 27, 2016 at 01:50 Discharge Date: Sep 27, 2016 Discharge Disposition: Home Principal Diagnosis: Chest Pain Secondary Diagnoses/Problems: Chest discomfort, Hypertensive Urgency, Dyslipidemia Procedures: ECHO Interpretation Summary * Name: PRINCE HOROWITZ Study Date: 09/27/2016 06:40 AM BP: 143/8 mmHg * Patient [facility]: [facility]\\S\\[facility]\\S\\2 HR: 65 * : 1955 (M/d/yyyy) Gender: Male Height: 70 in * Age: 61 yrs Ethnicity: [place] Weight: 229 lb * Ordering Physician: Mumtaz Foster * Referring Physician: Self, Referred * Performed By: Murtaza Parks RCS * * Reason For Study: Chest Pain * BSA: 2.2 m2 * -- Conclusions -- * Ejection Fraction = 65-70%. * Aortic valve sclerosis mild, without significant aortic valvular stenosis. * There is mild mitral regurgitation. Procedure Details * A complete two-dimensional transthoracic echocardiogram was performed (2D, M- mode, Doppler and color flow Doppler). Left Ventricle * The left ventricle is normal in size. * There is normal left ventricular wall thickness. * Left ventricular systolic function is normal. * Ejection Fraction = 65-70%. * The left ventricular wall motion is normal. Right Ventricle * The right ventricle is normal size. * The right ventricular systolic function is normal as assessed by tricuspid annular plane systolic excursion (TAPSE) (normal >1.5 cm). Atria * The left atrial size is normal. * Right atrial size is normal. * There is no evidence of atrial septal defect, but resolution does not allow assessment for a patent foramen ovale. Mitral Valve * The mitral valve is normal. * There is no mitral valve stenosis. * There is mild mitral regurgitation. Tricuspid Valve * The tricuspid valve is normal. * There is no tricuspid stenosis. * Significant tricuspid regurgitation is absent. Aortic Valve * Aortic valve sclerosis mild, without significant aortic valvular stenosis. * The aortic valve is trileaflet. * Aortic stenosis is absent. * There is no significant aortic regurgitation. Pulmonic Valve * The pulmonary valve is not well seen, but the Doppler examination is normal without significant regurgitation or stenosis. Great Vessels * The aortic root and proximal ascending aorta are normal sized. Pericardium/Pleural * There is no pericardial effusion. Great Vessels * Normal inferior vena cava diameter and respiratory variation suggests normal central venous pressure. Left Ventricular Diastolic Function * Pulse wave TDI of the anterior and posterior mitral annulas demonstrates normal LV relaxation MMode 2D Measurements and Calculations IVSd 1.2 cm IVSs 1.5 cm LVIDd 5.3 cm LVIDs 3.4 cm LVPWd 1.2 cm LVPWs 1.4 cm IVS/LVPW 0.96 FS 36.0 % EDV(Teich) 134.7 ml ESV(Teich) 47.0 ml EF(Teich) 65.1 % EDV(cubed) 148.0 ml ESV(cubed) 38.8 ml EF(cubed) 73.8 % % IVS thick 25.2 % % LVPW thick 15.2 % LV mass(C)d 257.8 grams LV mass(C)dI 116.6 grams/m\\S\\2 LV mass(C)s 174.9 grams LV mass(C)sI 79.1 grams/m\\S\\2 CO(Teich) 4.7 l/min CI(Teich) 2.1 l/min/m\\S\\2 SV(Teich) 87.8 ml SI(Teich) 39.7 ml/m\\S\\2 CO(cubed) 5.9 l/min CI(cubed) 2.7 l/min/m\\S\\2 SV(cubed) 109.2 ml SI(cubed) 49.4 ml/m\\S\\2 Ao root diam 3.5 cm Ao root area 9.4 cm\\S\\2 ACS 1.6 cm LA dimension 3.8 cm LA/Ao 1.1 LVAd ap4 43.7 cm\\S\\2 LVLd ap4 9.4 cm EDV(MOD-sp4) 172.0 ml LVAs ap4 21.0 cm\\S\\2 LVLs ap4 6.7 cm ESV(MOD-sp4) 59.0 ml EF(MOD-sp4) 65.7 % LVAd ap2 29.2 cm\\S\\2 LVLd ap2 7.7 cm EDV(MOD-sp2) 94.0 ml LVAs ap2 15.1 cm\\S\\2 LVLs ap2 6.2 cm ESV(MOD-sp2) 32.0 ml EF(MOD-sp2) 66.0 % CO(MOD-sp4) 6.1 l/min CI(MOD-sp4) 2.8 l/min/m\\S\\2 SV(MOD-sp4) 113.0 ml SI(MOD-sp4) 51.1 ml/m\\S\\2 CO(MOD-sp2) 3.3 l/min CI(MOD-sp2) 1.5 l/min/m\\S\\2 SV(MOD-sp2) 62.0 ml SI(MOD-sp2) 28.0 ml/m\\S\\2 Doppler Measurements and Calculations MV E max ismael 84.9 cm/sec MV A max ismael 72.6 cm/sec MV E/A 1.2 MV P1/2t max ismael 102.8 cm/sec MV P1/2t 79.5 msec MVA(P1/2t) 2.8 cm\\S\\2 MV dec slope 378.7 cm/sec\\S\\2 MV dec time 0.24 sec Ao V2 max 158.0 cm/sec Ao max PG 10.0 mmHg Ao max PG (full) 2.8 mmHg LV V1 max PG 7.2 mmHg LV V1 max 133.9 cm/sec PA V2 max 139.1 cm/sec PA max PG 7.8 mmHg TR max ismael 226.9 cm/sec Created: Initialized: 09/27/16; 1621 <Electronically signed by Charles Umaña DO> Signed: 09/29/16 0749 Charles Umaña DO The status of this report is Signed. Draft = Not yet reviewed or approved by [employer]. Signed = Reviewed and approved by [employer]. Medication Reconciliation New Medications: Amlodipine Besylate (Amlodipine Besylate) 5 Mg Tab 5 MG PO QAM for 30 Days, #30 TAB Continued Medications: Albuterol Sulfate (Proair Respiclick) 108 Mcg/Act Aer 2 PUFFS INH Q4 PRN for SOB/Wheezing Ketoconazole (Topical) (Ketoconazole) 2 % Sha 1 APPLN TOP DIRECTED for 30 Days, #120 ML 1 Refill apply to both groins Meloxicam (Mobic) 7.5 Mg Tab 15 MG PO DIRECTED PRN for Pain, TAB Simvastatin (Zocor) 40 Mg Tab 40 MG PO QPM, TAB Admission Information HPI (per Admitting provider): HISTORY OF PRESENT ILLNESS: Medical history significant for hyperlipidemia, past tobacco abuse. Hx Lyme disease sp treatment. Patient has had cough/nasal congestion symptoms. Cough later productive of yellow sputum.Sick contacts. Some improvent w/ [id number] medications, inhaler. He was at work today when he noted substernal discomfort going to the left arm, tingly, nonpleuritic, some shortness of breath, no diaphoreses; had some neck pain as well. Patient admits to some stress at work, more than usual. Brought by to the Emergency Room. SBP 220s. Patient received Solu-Medrol, nebs for bronchitis. Patient currently feeling better. Physical Exam (per Admitting): PHYSICAL EXAMINATION: VITAL SIGNS: Blood pressure was noted to be 220/75, later 140/80, pulse 61, respiratory rate 16, temperature 36.6, sats 98 on room air. GENERAL: Slightly anxious, obese, no respiratory distress. SKIN: Normal color. HEENT: Alopecia. [place] palpebral conjuctivae. Dry mucosa. NECK: Short neck. Expiratory wheezes at the bases. HEART: Regular rate and rhythm, no murmur. ABDOMEN: Some distension, nontender. EXTREMITIES: No edema. No tenderness. NEUROLOGIC: No gross focality. Hospital Course Chest pain possibly secondary with hypertensive urgency Need to r/o acs Asymptomatic at this time Repeat EKG this morning shown No ST depression Troponin negative Continue asa and statin Echo done normal left ventricular wall thickness. Left ventricular systolic function is normal. Ejection Fraction = 65-70% and left ventricular wall motion is normal. Hypertensive Urgency Pt said that he is having a lot of stress that is work related BP was elevated this morning Norvasc 5 mg was started Advised pt to follow a low salt diet Continue monitor BP Hyperlipidemia Total chol 213, LDL 154, HDL 42 Continue simvastatin Please follow a low cholesterol diet Cough Possible related to bronchitis Was started on doxy 100mg BID no wbc, symptoms improved mostly viral will d/c antibiotic for now Stable DVT Px on lovenox supq CODE STATUS FULL CODE DISPOSITION Follow up with your primary care physician Dr. Diaz on Oct 01 @2:10 pm Total time spent on discharge = 35 minutes This includes examination of the patient, discharge planning, medication reconciliation, and communication with other providers. Discharge Instructions Discharge Instructions Admission Reason for Admission: Chest Pain Discharge Discharge Diagnosis / Problem: Chest discomfort, Hypertensive Urgency, Dyslipidemia Discharge Goals Goal(s): Decrease discomfort, Improve function, Improve disease control Activity Recommendations Activity Limitations: resume your previous activity . Instructions / Follow-Up Instructions / Follow-Up Follow up with your primary care physician Dr. Diaz on Oct 01 @2:10 pm Current Hospital Diet Patient's current hospital diet: AHA Diet (Heart Healthy) Discharge Diet Recommended Diet: AHA Diet (Heart Healthy) Pending Studies Studies pending at discharge: no Laboratory Results Lipid Panel Test 09/27/16 05:00 Range/Units Triglycerides Level 87 0-150 mg/dl Cholesterol Level 213 H 0-200 mg/dl HDL Cholesterol 42 mg/dl Cholesterol/HDL Ratio 5.1 LDL Cholesterol, Calculated 154 mg/dl Medical Emergencies . Who to Call and When: Medical Emergencies: If at any time you feel your situation is an emergency, please call 911 immediately. . Non-Emergent Contact Non-Emergency issues call your: Primary Care Provider Call Non-Emergent contact if: you have any medication questions . . "Provider Documentation" section prepared by Sheba Reyes. VTE Core Measure Inpt VTE Proph given/why not?: Enoxaparin (Lovenox)SQ Additional Copies To Farhat Diaz M.D.
== END 2016-09-27 19:00 | disposition home or self-care (01) ==
LOC: ENRESERVDT → ENRESERVTM → C.EDB 00:03 → C.2T 01:50
PROVIDERS: ADMIT Internal Medicine; ATTEND Internal Medicine
DX: R07.9 Chest pain, unspecified (principal); I16.0 Hypertensive urgency; R05 Cough; E78.5 Hyperlipidemia, unspecified; Z51.81 Encounter for therapeutic drug level monitoring; Z79.899 Other long term (current) drug therapy; Z87.891 Personal history of nicotine dependence; Z82.49 Family history of ischemic heart disease and other diseases of the circulatory system